=== PATIENT | female | born 1995 | race Caucasian/White ===

== ENCOUNTER → 2020-04-27 | Outpatient (CLI) | payer OTHER ==
--- NOTE | 2020-04-27 16:00 | KCIC ---
5 views lumbar spine 04/27/2020 INDICATION: Low back pain COMPARISON STUDY: None FINDINGS: No evidence of acute fracture or alignment abnormality is identified. Vertebral body heights and disc spaces are maintained. No spondylolisthesis is seen. No acute osseous changes are identified. Surgical clips noted in the gallbladder fossa. IMPRESSION: No radiographic abnormality of the lumbar spine Electronically signed by: Sandro Norman MD (04/27/2020 3:56 PM) [id number]
== END ==
LOC: KCIC 13:47
PROVIDERS: ATTEND Nurse Practitioner Family
DX: M54.5 Low back pain (principal); Z90.49 Acquired absence of other specified parts of digestive tract
CPT/HCPCS: 72110